=== PATIENT | male | born 1990 | race Caucasian/White ===

== ENCOUNTER 2021-09-11 18:41 | Emergency (ER) | payer OTHER ==
[~2021-09-11] VITALS: Ht 193 cm; Wt 124.4 kg
[2021-09-11 18:51] VITALS: BP 134/95
[2021-09-11] MEDS ORDERED: IV NORMAL SALINE 1,000ML 1,000 ML IV ONE (19:15)
[2021-09-11] MEDS ORDERED: ONDANSETRON PF 4 MG/2 ML VIAL. IVP ONE (19:45)
[2021-09-11 19:49] LABS: BASO # 0.1 x10^3/uL (0.0-0.2); BASO % 1 % (0-3); EOS # 0.5 x10^3/uL (0.0-0.7); EOS % 6 % (0-3); HEMATOCRIT 40.3 % (39.0-53.0); HEMOGLOBIN 13.8 g/dL (13.0-17.5); LYMPH # 1.7 x10^3/uL (1.0-4.8); LYMPH % 23 % (24-48); MEAN CORPUSCULAR HEMOGLOBIN 32 pg (25-35); MEAN CORPUSCULAR HGB CONC 34 g/dL (31-37); MEAN CORPUSCULAR VOLUME 92 fL (79-100); MONO # 0.5 x10^3/uL (0.0-1.1); MONO % 7 % (0-9); NEUT # 4.5 x10^3uL (1.8-7.7); NEUT % 62 % (31-73); PLATELET COUNT 278 x10^3/uL (140-400); RED BLOOD COUNT 4.36 x10^6/uL (4.30-5.70); RED CELL DISTRIBUTION WIDTH 13.4 % (11.5-14.5); WHITE BLOOD COUNT 7.3 x10^3/uL (4.0-11.0)
[2021-09-11 19:57] LABS: CALCIUM 8.9 mg/dL (8.5-10.1); CREATININE 1.1 mg/dL (0.7-1.3); GFR 78.6
--- NOTE | 2021-09-11 20:33 | PHYS DOC ---
Past History Past Surgical History: No Surgical History (YOLANDA SOTO APRN) Alcohol Use: None (YOLANDA SOTO APRN) General Adult EDM: Chief Complaint: ALTERED MENTAL STATUS HPI: HPI: Patient is a 31-year-old male who presents with drowsiness. Patient states that he worked a 17-hour shift and went home to take care of his 4-year-old child and has not been to sleep. States when he was at work the told him he was walking around dazed. Patient states that he has 15 minutes of his day that he is unable to remember so he wanted to come in to be seen. Denies alcohol or drug use. Patient is alert and oriented. Denies chest pain, shortness of breath. No weakness or sensation changes. Denies medical history. (YOLANDA SOTO APRN) Review of Systems: Review of Systems: ROS At least 10 ROS systems have been reviewed and are negative except as documented in the HPI. General: Negative except as outlined in HPI above. Skin: Negative except as outlined in HPI above. HEENT: Negative except as outlined in HPI above. Neck: Negative except as outlined in HPI above. Respiratory: Negative except as outlined in HPI above.. Cardiovascular: Negative except as outlined in HPI above. Abdomen: Negative except as outlined in HPI above. : Negative except as outlined in HPI above. Back/MSK: Negative except as outlined in HPI above. Neuro: Negative except as outlined in HPI above. Psych: Negative except as outlined in HPI above. (YOLANDA SOTO APRN) Current Medications: Current Meds: Current Medications Medications (Trade) Dose Ordered Sig/Bernardino Start Time Stop Time Status Last Admin Dose Admin Ondansetron HCl (Zofran) 4 mg 1X ONCE 09/11/21 19:45 09/11/21 19:46 DC Sodium Chloride 1,000 ml @ 1,000 mls/hr 1X ONCE 09/11/21 19:15 09/11/21 20:14 DC 09/11/21 19:29 1,000 MLS/HR (YOLANDA SOTO APRN) Allergies: Allergies: Allergies Coded Allergies Type Severity Reaction Last Updated Verified No Known Drug Allergies 09/11/21 No (YOLANDA SOTO APRN) Physical Exam: PE: Constitutional: Well developed, well nourished, no acute distress, appears drowsy, bloodshot eyes HENT:bilateral external ears normal, oropharynx moist, no oral exudates, nose normal. [] Eyes: PERRLA, EOMI, conjunctiva normal, no discharge, red bloodshot eyes Neck: Normal range of motion, no tenderness, supple, no stridor. [] Cardiovascular: Sinus tachycardia Lungs & Thorax: Bilateral breath sounds clear to auscultation [] Abdomen: Bowel sounds normal, soft, no tenderness, no masses Skin: Warm, dry, no erythema, no rash. [] Back: No tenderness, no CVA tenderness. [] Extremities: No tenderness, no cyanosis, no clubbing, ROM intact, no edema. [] Neurologic: Alert and oriented X 3, normal motor function, normal sensory function, no focal deficits noted. [] Psychologic: Abnormal judgment, anxious mood (YOLANDA SOTO APRN) Current Patient Data: Labs: Laboratory Tests Test 09/11/21 18:50 09/11/21 19:25 Glucose (Fingerstick) 98 mg/dL (70-99) White Blood Count 7.3 x10^3/uL (4.0-11.0) Red Blood Count 4.36 x10^6/uL (4.30-5.70) Hemoglobin 13.8 g/dL (13.0-17.5) Hematocrit 40.3 % (39.0-53.0) Mean Corpuscular Volume 92 fL (79-100) Mean Corpuscular Hemoglobin 32 pg (25-35) Mean Corpuscular Hemoglobin Concent 34 g/dL (31-37) Red Cell Distribution Width 13.4 % (11.5-14.5) Platelet Count 278 x10^3/uL (140-400) Neutrophils (%) (Auto) 62 % (31-73) Lymphocytes (%) (Auto) 23 % (24-48) L Monocytes (%) (Auto) 7 % (0-9) Eosinophils (%) (Auto) 6 % (0-3) H Basophils (%) (Auto) 1 % (0-3) Neutrophils # (Auto) 4.5 x10^3uL (1.8-7.7) Lymphocytes # (Auto) 1.7 x10^3/uL (1.0-4.8) Monocytes # (Auto) 0.5 x10^3/uL (0.0-1.1) Eosinophils # (Auto) 0.5 x10^3/uL (0.0-0.7) Basophils # (Auto) 0.1 x10^3/uL (0.0-0.2) Sodium Level 144 mmol/L (136-145) Potassium Level 4.0 mmol/L (3.5-5.1) Chloride Level 107 mmol/L (98-107) Carbon Dioxide Level 28 mmol/L (21-32) Anion Gap 9 (6-14) Blood Urea Nitrogen 16 mg/dL (8-26) Creatinine 1.1 mg/dL (0.7-1.3) Estimated GFR (Cockcroft-Gault) 78.6 Glucose Level 103 mg/dL (70-99) H Calcium Level 8.9 mg/dL (8.5-10.1) Vital Signs: Vital Signs Date Time Temp Pulse Resp B/P (MAP) Pulse Ox O2 Delivery O2 Flow Rate FiO2 09/11/21 19:04 117 09/11/21 18:51 98.2 20 134/95 (108) 94 Room Air (YOLANDA SOTO APRN) EKG: EKG: [] (YOLANDA SOTO APRN) Radiology/Procedures: Radiology/Procedures: []Exam: CT head INDICATION: Altered mental status TECHNIQUE: Sequential axial images through the head were obtained without the administration of IV contrast. Exposure: One or more of the following in the visualized dose reduction t echniques were utilized for this examination: 1. Automated exposure control 2. Adjustment of the MA and/or KV according to patient size 3. Use of iterative of reconstructive technique Comparisons: None FINDINGS: No focal parenchymal lesion or hemorrhage is identified. There is no midline shift or sulcal effacement. No acute vascular territory infarction is identified. Lockwood-white distinction is preserved. The ventricular system is within normal limits without compression hydrocephalus. The basal cisterns are well maintained. The visualized portions of the paranasal sinuses and mastoid air cells are well- pneumatized. No acute fractures. IMPRESSION: No acute intracranial abnormality. Electronically signed by: Kumar Teague MD (09/11/2021 8:53 PM) MICAELA (YOLANDA SOTO APRN) Heart Score: C/O Chest Pain: No Risk Factors: Risk Factors: DM, Current or recent (<one month) smoker, HTN, HLP, family history of CAD, obesity. Risk Scores: Score 0 - 3: 2.5% MACE over next 6 weeks - Discharge Home Score 4 - 6: 20.3% MACE over next 6 weeks - Admit for Clinical Observation Score 7 - 10: 72.7% MACE over next 6 weeks - Early Invasive Strategies (YOLANDA SOTO APRN) Course & Med Decision Making: Course & Med Decision Making Pertinent Labs and Imaging studies reviewed. (See chart for details) [] Nontoxic-appearing, 31-year-old male presents with concerns of altered mental status. Patient states that he worked a 17-hour shift and then was at home taking care of his child and has not slept. Staff told patient he was acting drowsy today and he was unable to recall 15 minutes of his stay. Patient wanted to be seen due to memory loss. Patient has still not slept. Patient is complaining of some nausea. Denies injury or trauma, denies drug or alcohol use. Patient is alert and oriented but drowsy. Work-up in ER consisted of CBC, CMP, UDS, urinalysis. CT head ordered to rule out any acute abnormalities. Patient given NS bolus, Zofran for nausea. CT head unremarkable. No acute findings. All labs unremarkable. Patient states that he is feeling much better after fluids. Patient is less drowsy. Patient was able to sleep in the room while getting fluids. Patient is still alert and oriented and stating he is wanting to go home. Patient is able to ambulate on his own. Discussed with patient return precautions. Patient verbalizes understanding. (YOLANDA SOTO APRN) Dragon Disclaimer: Dragon Disclaimer: This electronic medical record was generated, in whole or in part, using a voice recognition dictation system. (YOLANDA SOTO APRN) Attending Co-Sign The patient was seen and interviewed as well as examined at the bedside. The chart was reviewed. The case was discussed. Agree with the plan of care. (ANNALISA RABAGO DO) Departure Departure: Impression: Primary Impression: Altered mental status, unspecified Qualified Codes: R41.82 - Altered mental status, unspecified Disposition: HOME / SELF CARE / HOMELESS Condition: STABLE Referrals: PCP,NO (PCP) YOLANDA SOTO APRN Sep 11, 2021 20:33 ANNALISA RABAGO DO Sep 13, 2021 15:01
--- NOTE | 2021-09-11 20:55 | RAD ---
Exam: CT head INDICATION: Altered mental status TECHNIQUE: Sequential axial images through the head were obtained without the administration of IV co ntrast. Exposure: One or more of the following in the visualized dose reduction techniques were utilized for this examination: 1. Automated exposure control 2. Adjustment of the MA and/or KV according to patient size 3. Use of iterative of reconstructive technique Comparisons: None FINDINGS: No focal parenchymal lesion or hemorrhage is identified. There is no midline shift or sulcal effaceme nt. No acute vascular territory infarction is identified. Lockwood-white distinction is preserved. The ventricular system is within normal limits without compression hydrocephalus. The basal cisterns are well maintained. The visualized portions of the paranasal sinuses and mastoid air cells are well-pneumatized. No acute fractures. IMPRESSION: No acute intracranial abnormality. Electronically signed by: Kumar Teague MD (09/11/2021 8:53 PM) MICAELA
--- NOTE | 2021-09-12 01:03 | EKG ---
[address] [address] Test Date: 2021-09-11 Test Time: 20:25:52 Pat Name: ANGEL MCDUFFIE Department: Room: Gender: M Personal Lines Agent: ABDIRIZAK : 1990 Requested By: YOLANDA SOTO Order Number: [id number] Reading MD: Christopher Valderrama Measurements Intervals [place] Rate: 75 P: 40 IN: 154 QRS: 37 QRSD: 92 T: 15 QT: 362 QTc: 407 Interpretive Statements SINUS RHYTHM NORMAL ECG RI6.02 No previous ECG available for comparison Electronically Signed On 09-12-2021 8:51:26 CDT by Christopher Valderrama
== END 2021-09-11 21:21 | disposition home or self-care (01) ==
LOC: ER 18:41
DX: R41.82 Altered mental status, unspecified (principal)
CPT/HCPCS: 36415; 70450; 80048; 82947; 85025; 93005; 96361; 96374; 99285; J2405; J7030

== ENCOUNTER 2021-09-22 19:51 | Emergency (ER) | payer OTHER ==
[~2021-09-22] VITALS: Ht 177.8 cm; Wt 128.6 kg
[2021-09-22 19:58] VITALS: BP 113/88
--- NOTE | 2021-09-22 20:13 | PHYS DOC ---
Past History Past Surgical History: No Surgical History (YOLANDA SOTO APRN) Alcohol Use: None (YOLANDA SOTO APRN) General Adult EDM: Chief Complaint: OTHER COMPLAINTS HPI: HPI: Patient is a 31-year-old male presents with altered mental status, elevated heart rate. Coworker states that he was acting drowsy and not himself, so EMS was called. On arrival EMS said that heart rate was 190. Patient states that he has been having trouble sleeping because of his 4-year-old child. Patient took 2 Tylenol PMs at 2:00 in the afternoon and had to be at work at 6 PM. Patient states he also drank 2 monsters before going to work. Patient states he is exhausted and is not getting any sleep during the day due to his childcare situation. Patient was seen in the ER 2 weeks ago for the same complaints. Denies medical history. (YOLANDA SOTO APRN) Review of Systems: Review of Systems: ROS At least 10 ROS systems have been reviewed and are negative except as documented in the HPI. General: Negative except as outlined in HPI above. Skin: Negative except as outlined in HPI above. HEENT: Negative except as outlined in HPI above. Neck: Negative except as outlined in HPI above. Respiratory: Negative except as outlined in HPI above.. Cardiovascular: Negative except as outlined in HPI above. Abdomen: Negative except as outlined in HPI above. : Negative except as outlined in HPI above. Back/MSK: Negative except as outlined in HPI above. Neuro: Negative except as outlined in HPI above. Psych: Negative except as outlined in HPI above. (YOLANDA OSTO APRN) Allergies: Allergies: Allergies Coded Allergies Type Severity Reaction Last Updated Verified No Known Drug Allergies 09/11/21 No (YOLANDA SOTO APRN) Physical Exam: PE: Constitutional: Well developed, well nourished, drowsy, bloodshot eyes HENT: Normocephalic, atraumatic, bilateral external ears normal, oropharynx moist, no oral exudates, nose normal. [] Eyes: PERRLA, EOMI, conjunctiva normal, no discharge. [] Neck: Normal range of motion, no tenderness, supple, no stridor. [] Cardiovascular:Heart rate regular rhythm, no murmur [] Lungs & Thorax: Bilateral breath sounds clear to auscultation [] Abdomen: Bowel sounds normal, soft, no tenderness, no masses, no pulsatile masses. [] Skin: Warm, dry, no erythema, no rash. [] Back: No tenderness, no CVA tenderness. [] Extremities: No tenderness, no cyanosis, no clubbing, ROM intact, no edema. [] Neurologic: Alert and oriented X 3, normal motor function, normal sensory function, no focal deficits noted. [] Psychologic: Abnormal judgment, calm mood (YOLANDA SOTO APRN) EKG: EKG: [] (YOLANDA SOTO APRN) Radiology/Procedures: Radiology/Procedures: [] (YOLANDA SOTO APRN) Heart Score: C/O Chest Pain: No Risk Factors: Risk Factors: DM, Current or recent (<one month) smoker, HTN, HLP, family history of CAD, obesity. Risk Scores: Score 0 - 3: 2.5% MACE over next 6 weeks - Discharge Home Score 4 - 6: 20.3% MACE over next 6 weeks - Admit for Clinical Observation Score 7 - 10: 72.7% MACE over next 6 weeks - Early Invasive Strategies (YOLANDA SOTO APRN) Course & Med Decision Making: Course & Med Decision Making Pertinent Labs and Imaging studies reviewed. (See chart for details) [] 31-year-old male presents with altered mental status and elevated heart rate. Patient took 2 Tylenol PMs at 2 PM and had to be working 6 PM. Patient was seen last week for the same complaint. EMS states heart rate was elevated to 190 when they arrived. Patient is hemodynamically stable upon arrival to the ER. Patient appears drowsy but is oriented. Advised patient that his symptoms are stemming from taking caffeine with antihistamines. Advised patient that can cause increase in heart rate and caused him to act altered and drowsy at work. Discussed taking the Tylenol PM when he will get a full 8 hours of sleep. Increase fluid. Patient states he understands and will follow-up with his PCP. Patient is hemodynamically stable upon disposition. (YOLANDA SOTO APRN) Course & Med Decision Making Do not see or evaluate patient. Did not discuss patient with [employer]. Generally agree with [employer]'s work-up and disposition per note (PATRICK SUNSHINE MD) Dragon Disclaimer: Dragon Disclaimer: This electronic medical record was generated, in whole or in part, using a voice recognition dictation system. (YOLANDA SOTO APRN) Departure Departure: Impression: Primary Impression: Insomnia Qualified Codes: G47.00 - Insomnia, unspecified Disposition: HOME / SELF CARE / HOMELESS Condition: STABLE Referrals: PCP,NO (PCP) Patient Instructions: Insomnia Additional Instructions: Increase your fluid. Stop taking Tylenol PM with caffeine. This increases your heart rate. You also do not need to take medication to help you sleep unless you have a full 8 hours before going back to work. Make sure you follow-up with PCP return to emergency room for worsening symptoms or concerns. EMERGENCY DEPARTMENT GENERAL DISCHARGE INSTRUCTIONS Thank you for coming to [facility] (ED) today and trusting us with you care. We trust that you had a positivie experience in our Emergency Department. If you wish to speak to the department management, you may call the director at [phone]. YOUR FOLLOW UP INSTRUCTIONS ARE FOLLOWS: 1. Do you have a private Doctor? If you do not have a private doctor, please ask for a resource list of physicians or clinics that may be able to assist you with follow up care. 2. The Emergency Physician has interpreted your x-rays. The X-Ray specialist will also review them. If there is a change in the findings, you will be notified in 48 hours when at all possible. 3. A lab test or culture has been done, your results will be reviewed and you will be notified if you need a change in treatment. ADDITIONAL INSTRUCTIONS AND INFORMATION: 1. Your care today has been supervised by a physician who is specially trained in emergency care. Many problems require more than one evaluation for a complete diagnosis and treatment. We recommend that you schedule your follow up appointment as recommended to ensure complete treatment of you illness or injury. If you are unable to obtain follow up care and continue to have a problem, or if your condition worsens, we recommend that you return to the ED. 2. We are not able to safely determine your condition over the phone nor are we able to give sound medical advice over the phone. For these safety reasons, if you call for medical advice we will ask you to come to the ED for further evaluation. 3. If you have any questions regarding these discharge instructions please call the ED at [phone]. SAFETY INFORMATION: In the interest of safety, wellness, and injury prevention; we encourage you to wear your sealbelt, if you smoke; quite smoking, and we encourage family to use a protective helmet for bicycling and other sporting events that present an increased risk for head injury. IF YOUR SYMPTOMS WORSEN OR NEW SYMPTOMS DEVELOP, OR YOU HAVE CONCERNS ABOUT YOUR CONDITION; OR IF YOUR CONDITION WORSENS WHILE YOU ARE WAITING FOR YOUR FOLLOW UP A PPOINTMENT; EITHER CONTACT YOUR PRIMARY CARE DOCTOR, THE PHYSICIAN WHOSE NAME AND NUMBER YOU WERE GIVEN, OR RETURN TO THE ED IMMEDIATELY. YOLANDA SOTO APRN Sep 22, 2021 20:13 PATRICK SUNSHINE MD Sep 22, 2021 22:18
[2021-09-22 21:22] LABS: CALCIUM 9.1 mg/dL (8.5-10.1); CREATININE 1.2 mg/dL (0.7-1.3); GFR 71.1
[2021-09-22 21:24] LABS: BASO # 0.1 x10^3/uL (0.0-0.2); BASO % 1 % (0-3); EOS # 0.2 x10^3/uL (0.0-0.7); EOS % 2 % (0-3); HEMATOCRIT 44.1 % (39.0-53.0); HEMOGLOBIN 14.9 g/dL (13.0-17.5); LYMPH # 2.2 x10^3/uL (1.0-4.8); LYMPH % 18 % (24-48); MEAN CORPUSCULAR HEMOGLOBIN 32 pg (25-35); MEAN CORPUSCULAR HGB CONC 34 g/dL (31-37); MEAN CORPUSCULAR VOLUME 94 fL (79-100); MONO # 0.8 x10^3/uL (0.0-1.1); MONO % 7 % (0-9); NEUT # 8.6 x10^3uL (1.8-7.7); NEUT % 72 % (31-73); PLATELET COUNT 309 x10^3/uL (140-400); RED BLOOD COUNT 4.69 x10^6/uL (4.30-5.70)
--- NOTE | 2021-09-23 18:57 | EKG ---
[facility] ED [facility] [place] [id number] Test Date: 2021-09-22 Test Time: 20:48:24 Pat Name: ANGEL MCDUFFIE Department: Room: Gender: M Electrical Systems Engineer: TEJ : 1990 Requested By: YOLANDA SOTO Order Number: [id number] Reading MD: Driss Tineo Measurements Intervals [place] Rate: 78 P: 28 [place]: 150 QRS: 24 QRSD: 96 T: 11 QT: 354 QTc: 407 Interpretive Statements SINUS RHYTHM NON SPECIFIC ST-T WAVE CHANGES Electronically Signed On 09-25-2021 18:27:22 CDT by Driss Tineo
== END 2021-09-22 21:20 | disposition home or self-care (01) ==
LOC: ER 19:51
DX: G47.00 Insomnia, unspecified (principal)
CPT/HCPCS: 36415; 80048; 85025; 93005; 99284

== ENCOUNTER 2021-09-22 23:16 | Emergency (ER) | payer OTHER ==
[~2021-09-22] VITALS: Ht 177.8 cm; Wt 128.6 kg
[2021-09-23] MEDS ORDERED: diphenhydrAMINE HCL 25 MG CAPSULE PO ONE (01:00)
[2021-09-23] MEDS ORDERED: ACETAMINOPHEN 500 MG TABLET PO ONE (01:00)
[2021-09-23] MEDS ORDERED: ONDANSETRON ODT 4 MG TAB.RAPDIS PO ONE (01:00)
--- NOTE | 2021-09-23 01:03 | PHYS DOC ---
Past History Past Surgical History: No Surgical History Alcohol Use: None Adult General Chief Complaint Chief Complaint: OTHER COMPLAINTS HPI HPI Patient is an otherwise healthy 31-year-old male who presents from work at the request of his employer's as he seemed sleepy at work and they are worried about him. Patient states over the last month with this new job he is only getting 2 to 3 hours of sleep at night because of stuff at home, and children and has been trying to make it on caffeine. States he has been super tired especially over the last week and working some 18-hour shifts. 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 Denies any alcohol or drug use. Denies need for medical work-up at this time and is currently asymptomatic. Review of Systems Review of Systems Review of systems otherwise unremarkable except noted in HPI Current Medications Current Medications Current Medications Medications (Trade) Dose Ordered Sig/Bernardino Start Time Stop Time Status Last Admin Dose Admin Acetaminophen (Tylenol) 1,000 mg 1X ONCE 09/23/21 01:00 09/23/21 01:01 09/23/21 00:31 1,000 MG Diphenhydramine HCl (Benadryl) 50 mg 1X ONCE 09/23/21 01:00 09/23/21 01:01 09/23/21 00:32 50 MG Ondansetron HCl (Zofran Odt) 4 mg 1X ONCE 09/23/21 01:00 09/23/21 01:01 09/23/21 00:31 4 MG Allergies Allergies Allergies Coded Allergies Type Severity Reaction Last Updated Verified No Known Drug Allergies 09/11/21 No Physical Exam Physical Exam Constitutional: Well developed, well nourished, no acute distress, non-toxic appearance. [] HENT: Normocephalic, atraumatic, bilateral external ears normal, oropharynx [address], no oral exudates, nose normal. [] Eyes: PERRLA, EOMI, conjunctiva normal, no discharge. [] Neck: Normal range of motion, no tenderness, supple, no stridor. [] Cardiovascular:Heart rate regular rhythm, no murmur [] Lungs & Thorax: Bilateral breath sounds clear to auscultation [] Abdomen: Bowel sounds normal, soft, no tenderness, no masses, no pulsatile masses. [] Skin: Warm, dry, no erythema, no rash. [] Back: No tenderness, no CVA tenderness. [] Extremities: No tenderness, no cyanosis, no clubbing, ROM intact, no edema. [] Neurologic: Alert and oriented X 3, normal motor function, normal sensory function, able to sit, stand and walk without issue no focal deficits noted. [] Psychologic: Affect normal, judgement normal, mood normal. [] Current Patient Data Vital Signs Vital Signs Date Time Temp Pulse Resp B/P (MAP) Pulse Ox O2 Delivery O2 Flow Rate FiO2 09/22/21 23:57 94 16 128/91 (103) 94 Room Air 09/22/21 23:34 97.7 EKG EKG [] Radiology/Procedures Radiology/Procedures [] Heart Score C/O Chest Pain: No Risk Factors: Risk Factors: DM, Current or recent (<one month) smoker, HTN, HLP, family history of CAD, obesity. Risk Scores: Risk Factors: DM, Current or recent (<one month) smoker, HTN, HLP, family history of CAD, obesity. Course & Med Decision Making Course & Med Decision Making Patient is a 31-year-old male who presents to the emergency department after feeling tired at work Vital signs initially notable for sinus tachycardia which resolved in the ED with no treatment. Patient denied need for any pain or nausea medicine. Patient denied any need for laboratory analysis, imaging. Had long discussions with patient. Discussed the need for sleep and cutting back on caffeine as this could make you tired, and delirious is gone on long enough and pose a health risk Advised staying home today, eating several nutritious meals and staying well- hydrated as well as getting some sleep. Gave him a work note for today and advised to go back tomorrow if well rested Patient grateful, verbalized understanding and agreed with plan of discharge [] Dragon Disclaimer Dragon Disclaimer This electronic medical record was generated, in whole or in part, using a voice recognition dictation system. Departure Departure: Impression: Primary Impression: Fatigue Disposition: HOME / SELF CARE / HOMELESS Condition: STABLE Referrals: PCP,NO (PCP) MARY JAVED MD Patient Instructions: Chronic Fatigue Syndrome Additional Instructions: Thank you for coming into the emergency department tonight and allowing us to take care of you. Please read the attached information carefully to go over things we discussed. Please be sure to cut back on the caffeine over the next couple of days and get plenty of sleep. Please be sure to eat at least 3 nutritious meals, stay well-hydrated and take a multivitamin. As we discussed, for your heartburn you can continue your omeprazole daily and take Tums with meals. Please follow-up with your primary care physician in the morning update on your ED visit and set up a follow-up. Please come back with new or concerning symptoms as discussed. PATRICK SUNSHINE MD Sep 23, 2021 01:03
[2021-09-23 01:05] VITALS: BP 133/78
== END 2021-09-23 01:12 | disposition home or self-care (01) ==
LOC: ER 23:16
DX: R53.83 Other fatigue (principal)
CPT/HCPCS: 99284; Q0162; Q0163